=== PATIENT | male | born 1970 | race Caucasian/White ===

== ENCOUNTER 2017-05-17 13:44 | Emergency (ER) | payer BC ==
--- NOTE | 2017-05-17 14:21 | EDM.PDOC ---
ED HPI GENERAL MEDICAL PROBLEM - General Chief Complaint: General Stated Complaint: NUMBNESS Time Seen by Provider: 05/17/17 14:05 Source of Information: Reports: Patient, RN History Limitations: Reports: No Limitations - History of Present Illness INITIAL COMMENTS - FREE TEXT/NARRATIVE: 47 yo male presents with a progressive syndrome over the past over a week that includes numbness first to his L arm and now also extending to his L thigh. He has a rapid HR and mild HTN. Has not been to a doctor in years until today when he presented to the clinic and was referred on to the ER. No chest pain. No hx of thyroid dz. Drink alcohol most days. Quit smoking about 10+ yrs ago. Has a cold for the past 2 days and is taking Excedrin Migraine and a OTC cold med for this, but most of his sx's preceded taking the cold med. Some R lower calf cramps at night lately. An EKG was done in the clinic today that showed a sinus tachycardia @ 121/min. No extremity weakness or trouble walking or difficulty with speech. Denies neck pain or restriction of movement. Has a mild VELA, not a migraine. Onset: Gradual Onset Date: 05/06/17 (estimated) Duration: Day(s): Location: Reports: Upper Extremity, Left, Lower Extremity, Left Quality: Reports: Other (numbness.) Severity: Moderate Improves with: Reports: None Worsens with: Reports: None Context: Reports: Other (unknown) Associated Symptoms: Reports: Headaches (mild), Nausea/Vomiting (earlier, no vomiting). Denies: Chest Pain, Cough, Diaphoresis, Fever/Chills, Seizure, Shortness of Breath, Syncope Treatments DIRECTOR AMBULATORY: Reports: Acetaminophen, Aspirin L headache, bilat jaw pain Pain Score (Numeric/FACES): 2 - Related Data Allergies Allergy/AdvReac Type Severity Reaction Status Date / Time No Known Allergies Allergy Verified 05/17/17 13:59 Home Meds: Home Meds Metoprolol Succinate [Toprol XL] 50 mg PO DAILY #15 tab.er 05/17/17 [Rx] ED ROS GENERAL - Review of Systems Review Of Systems: See Below Constitutional: Reports: No Symptoms HEENT: Reports: Rhinitis (clear) Respiratory: Reports: No Symptoms Cardiovascular: Reports: Other (tachycardia) Endocrine: Reports: No Symptoms GI/Abdominal: Reports: Nausea (earlier, not now). Denies: Black Stool, Bloody Stool, Constipation, Diarrhea, Decreased Appetite, Flatus, Hematemesis, Hematochezia, Melena, Vomiting : Reports: No Symptoms Musculoskeletal: Reports: No Symptoms. Denies: Neck Pain Skin: Reports: No Symptoms Neurological: Reports: Dizziness (with standing today), Numbness (L arm and L thigh). Denies: Syncope, Tremors, Trouble Speaking, Difficulty Walking, Weakness Psychiatric: Reports: No Symptoms ED EXAM, GENERAL - Physical Exam Exam: See Below Exam Limited By: No Limitations General Appearance: Alert, WD/WN, No Apparent Distress Eye Exam: Bilateral Eye: Normal Inspection Ears: Normal External Exam, Normal Canal, Hearing Grossly Normal, Normal TMs Ear Exam: Bilateral Ear: Auricle Normal, Canal Normal, TM normal Nose: Normal Inspection, Normal Mucosa, No Blood Throat/Mouth: Normal Inspection, Normal Lips, Normal Gums, Normal Oropharynx, Normal Voice, No Airway Compromise Head: Atraumatic, Normocephalic Neck: Normal Inspection, Supple, Non-Tender, Full Range of Motion Respiratory/Chest: No Respiratory Distress, Lungs Clear, Normal Breath Sounds, No Accessory Muscle Use Cardiovascular: Regular Rate, Rhythm, No Edema GI/Abdominal: Normal Bowel Sounds, Soft, Non-Tender, No Distention Back Exam: Normal Inspection. No: CVA Tenderness (R), CVA Tenderness (L) Extremities: Normal Inspection, Normal Range of Motion, Non-Tender, No Pedal Edema Neurological: Alert, Oriented, CN II-XII Intact, Normal Cognition, Other ( subjective numbness of L arm and L thigh only. ) Psychiatric: Normal Affect, Normal Mood. No: Anxious Skin Exam: Warm, Dry, Intact, Normal Color, No Rash Lymphatic: No Adenopathy Course - Vital Signs Last Recorded V/S: Last Vital Signs Temp 36.6 C 05/17/17 13:50 Pulse 107 H 05/17/17 15:51 Resp 14 05/17/17 15:51 BP 142/92 H 05/17/17 15:51 Pulse Ox 97 05/17/17 15:51 Orthostatic Blood Pressure [ 144/89 Standing] Orthostatic Blood Pressure [ 162/91 Sitting] Orthostatic Blood Pressure [ 149/95 Supine] - Orders/Labs/Meds Orders: Active Orders 24 hr Category Date Time Status Orthostatic Vital Signs [RC] ASDIRECTED Care 05/17/17 14:15 Active Head wo Cont [CT] Stat Exams 05/17/17 15:22 Taken Labs: Laboratory Tests 05/17/17 05/17/17 05/17/17 Range/Units 14:20 14:20 14:20 WBC 7.7 (4.5-12.0) X10-3/uL RBC 4.79 (4.30-5.75) x10(6)uL Hgb 15.4 (11.5-15.5) g/dL Hct 44.8 (30.0-51.3) % MCV 93.4 (80-96) fL MCH 32.2 (27.7-33.6) pg MCHC 34.4 (32.2-35.4) g/dL RDW 12.8 (11.5-15.5) % Plt Count 266 (125-369) X10(3)uL D-Dimer, Quantitative (100-400) ng/mL Sodium 136 (135-145) mmol/L Potassium 3.9 (3.5-5.3) mmol/L Chloride 100 (100-110) mmol/L Carbon Dioxide 28 (23-29) mmol/L BUN 10 (5-20) mg/dL Creatinine 1.0 (0.6-1.3) mg/dL Est Cr Clr Drug Dosing 105.42 mL/min Estimated GFR (MDRD) > 60 (>60) BUN/Creatinine Ratio 10.0 (9-20) Glucose 163 H (80-116) mg/dL Hemoglobin A1c (4.0-6.0) % Calcium 9.4 (8.6-10.2) mg/dL Total Bilirubin 0.9 (0.1-1.3) mg/dL AST 32 H (5-27) IU/L ALT 38 H (14-26) IU/L Alkaline Phosphatase 45 L (56-112) IU/L Troponin I < 0.01 L (0.02-0.06) NG/ML Total Protein 7.9 (6.0-8.0) g/dL Albumin 4.6 (3.5-5.2) g/dL Globulin 3.3 g/dL Albumin/Globulin Ratio 1.4 TSH, Ultra Sensitive (0.4-5.5) nlU/mL Urine Color (YELLOW) Urine Appearance (CLEAR) Urine pH (5.0-6.5) Ur Specific [place] (1.010-1.025) Urine Protein (NEGATIVE) mg/dL Urine Glucose (UA) (NEGATIVE) mg/dL Urine Ketones (NEGATIVE) mg/dL Urine Occult Blood (NEGATIVE) Urine Nitrite (NEGATIVE) Urine Bilirubin (NEGATIVE) Urine Urobilinogen (NEGATIVE) mg/dL Ur Leukocyte Esterase (NEGATIVE) Urine RBC (0) Urine WBC (0) Ur Squamous Epith Cells (NS,R,O) Urine Bacteria (NS) Urine Opiates Screen (NEGATIVE) Ur Oxycodone Screen (NEGATIVE) Ur Propoxyphene Screen (NEGATIVE) Ur Barbituates Screen (NEGATIVE) Ur Tricyclics Screen (NEGATIVE) Ur Phencyclidine Scrn (NEGATIVE) Ur Amphetamine Screen (NEGATIVE) Urine MDMA Screen (NEGATIVE) U Benzodiazepines Scrn (NEGATIVE) U Cocaine Metab Screen (NEGATIVE) U Marijuana (THC) Screen (NEGATIVE) 05/17/17 05/17/17 05/17/17 Range/Units 14:20 14:20 14:20 WBC (4.5-12.0) X10-3/uL RBC (4.30-5.75) x10(6)uL Hgb (11.5-15.5) g/dL Hct (30.0-51.3) % MCV (80-96) fL MCH (27.7-33.6) pg MCHC (32.2-35.4) g/dL RDW (11.5-15.5) % Plt Count (125-369) X10(3)uL D-Dimer, Quantitative 181 (100-400) ng/mL Sodium (135-145) mmol/L Potassium (3.5-5.3) mmol/L Chloride (100-110) mmol/L Carbon Dioxide (23-29) mmol/L BUN (5-20) mg/dL Creatinine (0.6-1.3) mg/dL Est Cr Clr Drug Dosing mL/min Estimated GFR (MDRD) (>60) BUN/Creatinine Ratio (9-20) Glucose (80-116) mg/dL Hemoglobin A1c 5.9 (4.0-6.0) % Calcium (8.6-10.2) mg/dL Total Bilirubin (0.1-1.3) mg/dL AST (5-27) IU/L ALT (14-26) IU/L Alkaline Phosphatase (56-112) IU/L Troponin I (0.02-0.06) NG/ML Total Protein (6.0-8.0) g/dL Albumin (3.5-5.2) g/dL Globulin g/dL Albumin/Globulin Ratio TSH, Ultra Sensitive 1.79 (0.4-5.5) nlU/mL Urine Color (YELLOW) Urine Appearance (CLEAR) Urine pH (5.0-6.5) Ur Specific [place] (1.010-1.025) Urine Protein (NEGATIVE) mg/dL Urine Glucose (UA) (NEGATIVE) mg/dL Urine Ketones (NEGATIVE) mg/dL Urine Occult Blood (NEGATIVE) Urine Nitrite (NEGATIVE) Urine Bilirubin (NEGATIVE) Urine Urobilinogen (NEGATIVE) mg/dL Ur Leukocyte Esterase (NEGATIVE) Urine RBC (0) Urine WBC (0) Ur Squamous Epith Cells (NS,R,O) Urine Bacteria (NS) Urine Opiates Screen (NEGATIVE) Ur Oxycodone Screen (NEGATIVE) Ur Propoxyphene Screen (NEGATIVE) Ur Barbituates Screen (NEGATIVE) Ur Tricyclics Screen (NEGATIVE) Ur Phencyclidine Scrn (NEGATIVE) Ur Amphetamine Screen (NEGATIVE) Urine MDMA Screen (NEGATIVE) U Benzodiazepines Scrn (NEGATIVE) U Cocaine Metab Screen (NEGATIVE) U Marijuana (THC) Screen (NEGATIVE) 05/17/17 05/17/17 Range/Units 14:50 14:50 WBC (4.5-12.0) X10-3/uL RBC (4.30-5.75) x10(6)uL Hgb (11.5-15.5) g/dL Hct (30.0-51.3) % MCV (80-96) fL MCH (27.7-33.6) pg MCHC (32.2-35.4) g/dL RDW (11.5-15.5) % Plt Count (125-369) X10(3)uL D-Dimer, Quantitative (100-400) ng/mL Sodium (135-145) mmol/L Potassium (3.5-5.3) mmol/L Chloride (100-110) mmol/L Carbon Dioxide (23-29) mmol/L BUN (5-20) mg/dL Creatinine (0.6-1.3) mg/dL Est Cr Clr Drug Dosing mL/min Estimated GFR (MDRD) (>60) BUN/Creatinine Ratio (9-20) Glucose (80-116) mg/dL Hemoglobin A1c (4.0-6.0) % Calcium (8.6-10.2) mg/dL Total Bilirubin (0.1-1.3) mg/dL AST (5-27) IU/L ALT (14-26) IU/L Alkaline Phosphatase (56-112) IU/L Troponin I (0.02-0.06) NG/ML Total Protein (6.0-8.0) g/dL Albumin (3.5-5.2) g/dL Globulin g/dL Albumin/Globulin Ratio TSH, Ultra Sensitive (0.4-5.5) nlU/mL Urine Color Yellow (YELLOW) Urine Appearance Clear (CLEAR) Urine pH 6.5 (5.0-6.5) Ur Specific [place] 1.005 L (1.010-1.025) Urine Protein Negative (NEGATIVE) mg/dL Urine Glucose (UA) Normal (NEGATIVE) mg/dL Urine Ketones Negative (NEGATIVE) mg/dL Urine Occult Blood Negative (NEGATIVE) Urine Nitrite Negative (NEGATIVE) Urine Bilirubin Negative (NEGATIVE) Urine Urobilinogen Normal (NEGATIVE) mg/dL Ur Leukocyte Esterase Negative (NEGATIVE) Urine RBC Not seen (0) Urine WBC 0-5 (0) Ur Squamous Epith Cells Few H (NS,R,O) Urine Bacteria Few H (NS) Urine Opiates Screen Negative (NEGATIVE) Ur Oxycodone Screen Negative (NEGATIVE) Ur Propoxyphene Screen Negative (NEGATIVE) Ur Barbituates Screen Negative (NEGATIVE) Ur Tricyclics Screen Negative (NEGATIVE) Ur Phencyclidine Scrn Negative (NEGATIVE) Ur Amphetamine Screen Negative (NEGATIVE) Urine MDMA Screen Negative (NEGATIVE) U Benzodiazepines Scrn Negative (NEGATIVE) U Cocaine Metab Screen Negative (NEGATIVE) U Marijuana (THC) Screen Negative (NEGATIVE) Meds: Medications Discontinued Medications Generic Name Dose Route Start Last Admin Trade Name Freq PRN Reason Stop Dose Admin Alprazolam 0.5 mg 05/17/17 15:32 05/17/17 15:37 Xanax PO 05/17/17 15:33 0.5 mg NOW ONE Administration Aspirin 324 mg 05/17/17 14:49 05/17/17 14:54 Aspirin PO 05/17/17 14:50 324 mg ONETIME ONE Administration Metoprolol Tartrate 50 mg 05/17/17 16:32 Lopressor PO 05/17/17 16:33 ONETIME ONE Departure - Departure Time of Disposition: 16:40 Disposition: Home, Self-Care 01 Condition: Fair Clinical Impression: Tachycardia, Hyperglycemia, Elevated LFTs, Left arm numbness HTN (hypertension) Qualifiers: Hypertension type: essential hypertension Qualified Code(s): I10 - Essential ( primary) hypertension - Discharge Information Prescriptions: Metoprolol Succinate [Toprol XL] 50 mg PO DAILY #15 tab.er Referrals: Montrell Guthrie MD [Primary Care Provider] - Forms: ED Department Discharge Additional Instructions: Take metoprolol succinate 50 mg every morning starting tomorrow. Take a baby aspirin daily. Recheck in the clinic before the weekend. Return as needed. - My Orders Last 24 Hours: My Active Orders 05/17/17 14:15 Orthostatic Vital Signs [RC] ASDIRECTED 05/17/17 15:22 Head wo Cont [CT] Stat - Assessment/Plan Last 24 Hours: My Active Orders 05/17/17 14:15 Orthostatic Vital Signs [RC] ASDIRECTED 05/17/17 15:22 Head wo Cont [CT] Stat
[2017-05-17] MEDS ORDERED: Aspirin 81 MG Tab.Chew PO ONE (14:49)
[2017-05-17] MEDS ORDERED: ALPRAZolam 0.5 MG Tab PO ONE (15:32)
[2017-05-17] MEDS ORDERED: Metoprolol Tartrate 50 MG Tab PO ONE (16:32)
[2017-05-17 16:42] VITALS: BP 135/87
--- NOTE | 2017-05-18 08:35 | CT ---
INDICATION: Headache, left-sided, with tingling on and off. Left arm and left thigh numbness. CT HEAD WITHOUT CONTRAST: Serial contiguous 2.5 and 5-mm sections were obtained through the brain without contrast 05/17/2017. No comparisons were available. Total Exam DLP = 949.36 mGy-cm. No shift of midline structures, ventricular abnormalities, or abnormal areas of density were identified - no acute intracranial abnormalities were seen - no bleeding site or hematoma was noted. Air-fluid levels are noted in the maxillary antra bilaterally with thickening of linings of ethmoidal air cells suggested. Findings suggest maxillary and ethmoidal sinusitis. The air-fluid level in the right maxillary antrum is larger than the left. No cranial abnormality was suggested. IMPRESSION: 1. No acute intracranial abnormalities. 2. Sinusitis, maxillary and ethmoidal, appears acute in the maxillary sinuses. 3. 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 Report was called to Dr. Walden at 1631 hours, 05/17/2017. [facility]
== END 2017-05-17 16:42 | disposition home or self-care (01) ==
LOC: FB.ED 13:44
DX: R20.0 Anesthesia of skin (principal); R00.0 Tachycardia, unspecified; R73.9 Hyperglycemia, unspecified; R94.5 Abnormal results of liver function studies; I10 Essential (primary) hypertension; Z79.899 Other long term (current) drug therapy; Z87.891 Personal history of nicotine dependence
CPT/HCPCS: 36415; 70450; 80053; 80305; 81001; 83036; 84443; 84484; 85027; 85379; 99284; A9270

== ENCOUNTER 2020-05-22 18:01 | Emergency (ER) | payer BC ==
[2020-05-22] MEDS ORDERED: Prochlorperazine 5 MG Tab PO ONE (18:02)
--- NOTE | 2020-05-22 18:24 | EDM.PDOC ---
ED HPI GENERAL MEDICAL PROBLEM - General Chief Complaint: Neuro Symptoms/Deficits Stated Complaint: LIGHT HEADED AND DIZZY Time Seen by Provider: 05/22/20 18:30 Source of Information: Reports: Patient History Limitations: Reports: No Limitations - History of Present Illness INITIAL COMMENTS - FREE TEXT/NARRATIVE: presents with symptoms of dizziness that started at about 3pm , feels like he is spinning at the time he was at home took his blood pressure and it was 200 systolic on arrival in clinic this was rechecked and it was 140's systolic has had dizziness on and off but states this time is worse than prior episodes ( would get dizzy would resolve in minutes), today last > 2 hours 4 yrs ago had episode of dizziness with left sided weakness , left him with residual numbness and tingling on the left side . had RASHEED done in [place] and no definite problem was found currently states that has not gotten worse ( the numbness and tingling) - Related Data Allergies Allergy/AdvReac Type Severity Reaction Status Date / Time No Known Allergies Allergy Verified 05/22/20 18:18 Home Meds: Home Meds NK [No Known Home Meds] 05/22/20 [History] Past Medical History Musculoskeletal History: Reports: Fracture Other Musculoskeletal History: fx collar bone, Neurological History: Reports: Migraines Psychiatric History: Reports: Depression Endocrine/Metabolic History: Reports: Obesity/BMI 30+ - Past Surgical History HEENT Surgical History: Reports: Adenoidectomy, Oral Surgery, Tonsillectomy Musculoskeletal Surgical History: Reports: Arthroscopic Procedure Other Musculoskeletal Surgeries/Procedures:: L knee scope Social & Family History - Family History Family Medical History: Noncontributory - Caffeine Use Caffeine Use: Reports: Coffee, Soda ED ROS GENERAL - Review of Systems Review Of Systems: See Below Constitutional: Reports: Weakness HEENT: Reports: No Symptoms Respiratory: Reports: No Symptoms Cardiovascular: Reports: No Symptoms Endocrine: Reports: No Symptoms GI/Abdominal: Reports: No Symptoms Musculoskeletal: Reports: No Symptoms Skin: Reports: No Symptoms Neurological: Reports: Dizziness, Headache, Paresthesia. Denies: Difficulty Walking, Change in Speech, Gait Disturbance Psychiatric: Reports: No Symptoms Hematologic/Lymphatic: Reports: No Symptoms Immunologic: Reports: No Symptoms ED EXAM, NEURO - Physical Exam Exam: See Below Exam Limited By: No Limitations General Appearance: Alert, WD/WN, No Apparent Distress Ears: Normal External Exam Nose: Normal Inspection Throat/Mouth: Normal Inspection, Normal Oropharynx Head Exam: Atraumatic, Normocephalic Neck: Normal Inspection, Supple, Non-Tender Respiratory/Chest: No Respiratory Distress, Lungs Clear Cardiovascular: Normal Peripheral Pulses, Regular Rate, Rhythm GI/Abdominal: Soft, Non-Tender Back Exam: Full Range of Motion Extremities: Normal Inspection, Normal Range of Motion Psychiatric: Normal Mood Skin Exam: Warm, Dry *Q Meaningful Use (ADM) - VTE *Q VTE Mechanical Contraindications *Q: Tx/Proc Refused byPt VTE Pharmacological Contraindications *Q: Tx/Proc Refused by Pt - VTE Risk Assess *Q Each Risk Factor Represents 1 Point: None Total Score 1 Point Risk Factors: 0 - Stroke *Q Aspirin Contraindications Stroke *Q: Other (Use Special Inst) Anticoagulation Contraindications Stroke *Q: Medical/Procedure Contrai Antithrombotic Contraindications Stroke *Q: Medical/Proc Contrain Thrombolytic/Fibrinolytic Contraindications Stroke *Q: Medical/Proc Contrain Statin Contraindications Stroke *Q: Medical/Proc Contrain Rehabilitation Assessment Contraindication *Q: Medical/procedure contrai - AMI *Q Aspirin Contraindications AMI *Q: Medical/Proc Contrain Thrombolytic/Fibrinolytic Contraindications IV (AMI) *Q: Medical/proc contrain Statin Contraindications AMI *Q: Medical/Proc Contrain Course - Vital Signs Last Recorded V/S: Last Vital Signs Temp 36.9 C 05/22/20 18:15 Pulse 88 05/22/20 18:15 Resp 14 05/22/20 18:15 BP 159/96 H 05/22/20 18:15 Pulse Ox 99 05/22/20 18:15 - Orders/Labs/Meds Orders: Active Orders 24 hr Category Date Time Status EKG Documentation Completion [RC] ASDIRECTED Care 05/22/20 18:24 Active Chest 2V [CR] Stat Exams 05/22/20 18:19 Taken Head wo Cont [CT] Stat Exams 05/22/20 18:20 Taken EKG 12 Lead [EK] Routine Ther 05/22/20 18:23 Ordered Labs: Laboratory Tests 05/22/20 05/22/20 05/22/20 Range/Units 18:25 18:25 18:25 WBC 8.4 (4.5-12.0) X10-3/uL RBC 4.97 (4.30-5.75) x10(6)uL Hgb 15.5 (13.5-17.8) g/dL Hct 47.7 (30.0-51.3) % MCV 95.9 (80-96) fL MCH 31.1 (27.7-33.6) pg MCHC 32.5 (32.2-35.4) g/dL RDW 12.8 (11.5-15.5) % Plt Count 318 (125-369) X10(3)uL Sodium 140 (135-145) mmol/L Potassium 4.1 (3.5-5.3) mmol/L Chloride 102 (100-110) mmol/L Carbon Dioxide 29 (21-32) mmol/L BUN 14 (7-18) mg/dL Creatinine 1.2 (0.70-1.30) mg/dL Est Cr Clr Drug Dosing TNP Estimated GFR (MDRD) > 60 (>60) BUN/Creatinine Ratio 11.7 (9-20) Glucose 126 H (80-116) mg/dL Calcium 8.2 L (8.6-10.2) mg/dL Total Bilirubin 0.5 (0.1-1.3) mg/dL AST 19 (5-25) IU/L ALT 43 H (12-36) U/L Alkaline Phosphatase 49 L (56-112) IU/L Troponin I (4.0-60.3) pg/mL NT-Pro-B Natriuret Pep 13 (<=125) pg/mL Total Protein 6.7 (6.0-8.0) g/dL Albumin 3.8 (3.5-5.2) g/dL Globulin 2.9 g/dL Albumin/Globulin Ratio 1.3 TSH, Ultra Sensitive (0.36-3.74) IU/mL 05/22/20 Range/Units 18:25 WBC (4.5-12.0) X10-3/uL RBC (4.30-5.75) x10(6)uL Hgb (13.5-17.8) g/dL Hct (30.0-51.3) % MCV (80-96) fL MCH (27.7-33.6) pg MCHC (32.2-35.4) g/dL RDW (11.5-15.5) % Plt Count (125-369) X10(3)uL Sodium (135-145) mmol/L Potassium (3.5-5.3) mmol/L Chloride (100-110) mmol/L Carbon Dioxide (21-32) mmol/L BUN (7-18) mg/dL Creatinine (0.70-1.30) mg/dL Est Cr Clr Drug Dosing Estimated GFR (MDRD) (>60) BUN/Creatinine Ratio (9-20) Glucose (80-116) mg/dL Calcium (8.6-10.2) mg/dL Total Bilirubin (0.1-1.3) mg/dL AST (5-25) IU/L ALT (12-36) U/L Alkaline Phosphatase (56-112) IU/L Troponin I 4.3 (4.0-60.3) pg/mL NT-Pro-B Natriuret Pep (<=125) pg/mL Total Protein (6.0-8.0) g/dL Albumin (3.5-5.2) g/dL Globulin g/dL Albumin/Globulin Ratio TSH, Ultra Sensitive 3.09 (0.36-3.74) IU/mL Meds: Medications Discontinued Medications Generic Name Dose Route Start Last Admin Trade Name Freq PRN Reason Stop Dose Admin Meclizine HCl 50 mg 05/22/20 18:40 05/22/20 18:55 Antivert PO 05/22/20 18:41 50 mg ONETIME ONE Administration Scopolamine 1.5 mg 05/22/20 18:41 05/22/20 18:55 Transderm-Scop TOP 05/22/20 18:42 1.5 mg ONETIME ONE Administration - Re-Assessments/Exams Free Text/Narrative Re-Assessment/Exam: 05/22/20 19:[address] pt [address] out to Dr Hahn Departure - Departure Time of Disposition: 19:21 Disposition: Home, Self-Care 01 Clinical Impression: Dizziness and giddiness, Numbness and tingling in right hand, Vertigo Hypertension Qualifiers: Hypertension type: essential hypertension Qualified Code(s): I10 - Essential (primary) hypertension - Discharge Information Referrals: PCP,Unknown [Primary Care Provider] - Forms: ED Department Discharge Sepsis Event Note (ED) - Evaluation Sepsis Screening Result: No Definite Risk - Focused Exam Vital Signs: Vital Signs Temp Pulse Resp BP Pulse Ox 05/22/20 18:15 36.9 C 88 14 159/96 H 99 - My Orders Last 24 Hours: My Active Orders 05/22/20 18:19 Chest 2V [CR] Stat 05/22/20 18:20 Head wo Cont [CT] Stat 05/22/20 18:23 EKG 12 Lead [EK] Routine 05/22/20 18:24 EKG Documentation Completion [RC] ASDIRECTED - Assessment/Plan Last 24 Hours: My Active Orders 05/22/20 18:19 Chest 2V [CR] Stat 05/22/20 18:20 Head wo Cont [CT] Stat 05/22/20 18:23 EKG 12 Lead [EK] Routine 05/22/20 18:24 EKG Documentation Completion [RC] ASDIRECTED
[2020-05-22] MEDS ORDERED: Meclizine 25 MG Tab PO ONE (18:40)
[2020-05-22] MEDS ORDERED: Scopolamine 1.5 MG Transdermal Patch TOP ONE (18:41)
[2020-05-22 19:45] VITALS: BP 136/79; PULSE 82
--- NOTE | 2020-05-22 20:47 | ER ---
DATE SEEN: 05/22/2020 REASON FOR VISIT: Dizziness. HISTORY OF PRESENT ILLNESS: This is a 50-year-old male who had seen Dr. Thea Marsh and she handed over to me. He has dizziness that started about 1500 hours. He has had episodes of dizziness for several weeks. He describes vertigo, spinning sensation, and nausea. He has no headache. PAST MEDICAL HISTORY: Apart from the dizziness, he has had hyperglycemia. MEDICATIONS: Reviewed. ALLERGIES: Reviewed. REVIEW OF SYSTEMS: Tonight, he has no headaches, no chest pain or shortness of breath. PHYSICAL EXAMINATION: VITAL SIGNS: He has normal vital signs except for blood pressure which is 159/96. ENT: Normal. MENTAL STATUS: Alert. NEUROLOGIC: Normal. LABORATORY AND IMAGING DATA: CMP and even troponin are negative. EKG normal sinus rhythm. CT head noncontrast is negative. IMPRESSION: Benign positional vertigo. PLAN: He had gotten some meclizine and scopolamine patch. I will send Compazine 5 mg t.i.d. p.r.n. He is to see his PCP tomorrow. /[id number] CHARI/KEN
== END 2020-05-22 19:40 | disposition home or self-care (01) ==
LOC: FB.ED 18:01
DX: H81.10 Benign paroxysmal vertigo, unspecified ear (principal); I10 Essential (primary) hypertension; R20.0 Anesthesia of skin; R20.2 Paresthesia of skin; E66.9 Obesity, unspecified; Z68.36 Body mass index [BMI] 36.0-36.9, adult
CPT/HCPCS: 36415; 70450; 71046; 80053; 83880; 84443; 84484; 85027; 93005; 99284; A9270; 93010; 99283; Q0164